=== PATIENT | female | born 1980 | race Caucasian/White ===

== ENCOUNTER → 2025-04-09 | Outpatient (CLI) | payer OTHER, SELFPAY ==
--- NOTE | 2025-04-09 09:45 | MRI_ITS ---
PROCEDURE: SPINE LUMBAR (ROUTINE) 04/09/2025 REASON FOR EXAM: PAIN, RADICULOPATHY TECHNIQUE: SPINE LUMBAR (ROUTINE) COMPARISON: Lumbar spine radiographs 02/26/2025. FINDINGS: 5 [id number] lumbar-type vertebrae are preserved in height. No acute fracture or subluxation. Small osseous fragment at the anterosuperior corner of L5 is most likely a developmental limbus vertebra. No abnormal marrow signal. Straightening of the normal lumbar lordosis may be positional. Relatively well preserved disc height, with mild desiccation at L4-5 and L5-S1. No significant disc bulge, spinal canal or neural foraminal narrowing is present on either side. There is at most mild lateral recess stenosis at L4-5, slightly greater on the left secondary to minimal dorsal annular disc bulge. Conus is normal in signal and morphology, terminating at L1. Normal appearance of the cauda equina. Unremarkable paravertebral soft tissues. MRI/Spine Lumbar (Routine) IMPRESSION: Minimal spondylotic changes at L4-5 and L5-S1, with mild lateral recess stenosi s at L4-5. Otherwise the spinal canal and bilateral neural foramina are widely patent. Reading Location: [id number]
--- OUTSIDE RECORDS SUMMARY | 2025-04-09 10:13 | XMS RPT_ITS | CCD ---
Author Organization [facility] CliniSyms Care Team Providers Care Director [employer] Name Role Phone NIKA NIELSEN Unavailable AUGUSTINE ADLER MD Unavailable DERREKCORIN BURNS Unavailable Unavailable KEVIN RAMOS, OCSAR Luciano Unavailable Unavailable STEPHANIA RAMOS, Mar YU Unavailable AIMEE OCHOA MD Unavailable Zaki ADLER MD Unavailable STACY BREAUX MD Unavailable Sana Brand Unavailable Unavailable Lillie Sanchez Unavailable Unavailable Marissa Velásquez Unavailable Unavailable Lakshmi RN, Chasidy Unavailable Unavailable GABRIELA RAMOS, TIGRE Beck Unavailable [phone] NAYELY JEFFRIES-ZACH ALSTON Unavailable Unavailable Unavailable NIKA NIELSEN Unavailable Unav ailable PHYSICAL THERAPY, CONSULT Unavailable Mar Lopez Attending Unavailable Mar CAT Primary Care Unavailable Mar CAT Admitting Unavailable TIGRE OCHOA Consulting Unavailable PROVIDER, UNKNOWN Consulting Unavailable PROVIDER, UNKNOWN Consulting Unavailable PROVIDER, UNKNOWN Consulting Unavailable Town Doctor, Out of Primary Care Provider Unavai lable Town Doctor, Out of Referring Provider Unavailab Erin Beltre Attending Provider [phone] Florentino RAMSO, Dr. Stack Attending Provider [phone] Town Doctor, Out of Primary Care Unavailable Town Doctor, Out of Referring Unavailable Erin Shaw Attending Unavailable Town Doctor, Out of Primary Care Unavailable Sreekanth Good Attending Unavailable Town Doctor, Out of Primary Care Unavailable Town Doctor, Out of Referring Unavailable Erin Shaw Attending Unavailable Town Doctor, Out of Primary Care Unavailable Erin Shaw Attending Unavailable Erin Shaw Referring Unavailable [facility] Doctor, Out of Primary Care Unavailable Sreekanth Good Attending Unavailable Medications Current Medications Medication Drug Class(es) Dates Sig (Normalized) Sig (Original) cetirizine hydrochloride 10 mg oral capsule (17 sources) Histamine-1 Receptor Antagonist Start: 02-26-2025 take 1 capsule by mouth once daily as needed Cetirizine (Zyrtec) 10 mg capsule Active 10 mg PO daily as needed February 26, 2025 12:00am take 1 capsule by mouth once kaushik ly ZYRTEC ALLERGY, 10MG (Oral Capsule) ; 1 daily (10 MG) ibuprofen 200 mg oral tablet (2 sources) Nonsteroidal Anti-inflammatory Drug Start: 03-31-2025 take 1 tablet by mouth every six hours as needed Ibuprofen 200 mg tablet Active 200 mg PO EVERY 6 HOURS as needed March 31, 2025 12:00am methocarbamol 500 mg oral tablet (3 sources) Muscle Relaxant Start: 02-26-2025 take 1 tablet by mouth three times daily as needed for pain Methocarbamol 500 mg tablet Active 500 mg PO THREE TIMES A DAY as needed for pain/spasms 30 0 February 26, 2025 12:00am naproxen 500 mg oral tablet (9 sources) Nonsteroidal Anti-inflammatory Drug Start: 03-31-2025 Naproxen 500 mg tablet Active 500 mg PO 1 to 2 times per day as needed for pain March 31, 2025 12:00am Start: 12-31-2024 naproxen 500 m g tablet ; 1 (one) tablet up to bid prn pain for 30 days Quantity: 60 {Tablet} Refills: 2 Ordered: 31-Dec-2024 MD Mar CAT Start: 31-Dec-2024 Comments: Take with food Comment on above: Take with food Completed/Discontinued Medications Medication Drug Class(es) Dates Sig (Normalized) Sig (Original) azithromycin 250 mg oral tablet (13 sources) Macrolide Antimicrobial Start: 11-05-2011 End: 11-10-2011 AZITHROMYCIN, 250MG (Oral Tablet) ; 2 x 1 then 1 x 4 Tablet daily for 5 days Quantity: 6 {Tablet} Refills: 0 Ordered: 20-Aug-2012 MD STACY BREAUX Start: 05-Nov-2011 End: 10-Nov-2011 Status: Inactive Comments: take two tablets day one and then one tablet daily for 4 days Comment on above: take two tablets day one and then one tablet daily for 4 days 12 hr guaiFENesin 600 mg extended release oral tablet (13 sources) Start: 07-08-2014 End: 07-17-2014 MUCINEX, 600MG (Oral Tablet Extended Release 12 Hour) ; 1 (one) Tablet ER 12HR daily to bid for 9 days Quantity: 18 {Tablet} Refills: 0 Ordered: 24-Sep-2014 MD Mar CAT Start: 08-Jul-2014 End: 17-Jul-2014 Status: Inactive hydrOXYzine hydrochloride 25 mg oral tablet (13 sources) Antihistamine take 1 tablet by mouth three times daily as needed HYDROXYZINE HCL, 25MG (Oral Tablet) ; 1 three times daily, as needed (25 MG) Status: Inactive Comments: Medication taken as needed. Comment on above: Medication taken as needed. oseltamivir 75 mg oral capsule (13 sources) Neuraminidase Inhibitor Start: 09-24-2014 End: 09-09-2017 Tamiflu 75 MG Oral Capsule ; 1 (one) Capsule two times daily for 5 days for 0 days Quantity: 10 {Capsule} Refills: 0 Ordered: 09-Sep-2017 TEQUILA Martins Start: 24-Sep-2014 End: 09-Sep-2017 Status: Inactive Forte Oral Tablet (13 sources) take 1 tablet by mouth once daily Forte Oral Tablet ; 1 daily Status: Inactive VITAMINS, 0.8MG (Oral Tablet) (13 sources) VITAMIN S, 0.8MG (Oral Tablet) ; (0.8 MG) Status: Inactive pseudoephedrine hydrochloride 60 mg oral tablet (13 sources) alpha-Adrenergic Agonist Start: 07-08-2014 End: 07-18-2014 take 0.5-0.5 tablets by mouth every eight hours as needed for congestion PSEUDOEPHEDRINE HCL, 60MG (Oral Tablet) ; 1/2 Tablet 1/2 to 1 every 8 hours prn sinus pressure and congestion for 10 days Quantity: 30 {Tablet} Refills: 0 Ordered: 24-Sep-2014 MD Mar CAT Start: 08-Jul-2014 End: 18-Jul-2014 Status: Inactive Problems Active Problems Problem Classification Problem Date Documented Da te Episodic/Chronic Abdominal hernia (20 sources) Umbilical hernia; Translations: [Umbilical hernia without obstruction or gangrene] 11-05-2011 Episodic Acute bronchitis (20 sources) Acute viral bronchitis; Translations: [Acute bronchitis due to other specified organisms] 05-11-2019 Episodic Immunizations and screening for infectious disease (20 sources) Needs influenza immunization; Translations: [Encounter for immunization] 09-09-2017 Episodic Influenza (20 sources) Influenza; Translations: [Influenza due to unidentified influenza virus with other respiratory manifestations] 09-24-2014 Episodic Nonspecific chest pain (20 sources) Chest wall pain; Translations: [Other chest pain] 11-26-2023 Episodic Other screening for suspected conditions (not mental disorders or infectious disease) (20 sources) Patient encounter status; Translations: [Encounter for screening for lipoid disorders] 09-09-2017 Episodic Other skin disorders (20 sources) Sebaceous cyst of skin; Translations: [Sebaceous cyst] 09-24-2014 Episodic Residual codes; unclassified (20 sources) Overweight; Translations: [Other specified conditions influencing health status] 10-20-2019 Episodic Spondylosis; intervertebral disc disorders; other back problems (20 sources) Neck pain; Translations: [Cervicalgia] Onset: 03-31-2025 11-30-2019 Episodic Thyroid disorders (20 sources) Goiter; Translations: [Nontoxic goiter, unspecified] 10-28-2019 Chronic Unclassified (1 source) Low back pain, unspecified; Translations: [Low back pain, unspecified] Onset: 02-26-2025 Viral infection (20 sources) Viral disease; Translations: [Viral infection, unspecified] 07-08-2014 Episodic Past or Other Problems Problem Classification Problem Date Documented Da te Episodic/Chronic Headache; including migraine (13 sources) Headache; including migraine 07-08-2014 Unclassified (13 sources) Chest pain - Note for Chest pain: Onset Wednesday 11/22 - Right chest electric burning sensation lasting 1 minute. Was cleaning barn - pigs/chickens. No SOB/dizziness. This has continued occasionally and is also noted left chest and apper back. Aggravated when lifts son. Feels well otherwise. 11-26-2023 Unclassified (13 sources) anterior neck fullness - Pt states 2-3 week h/o feeling of fullness in anterior neck. Describes feeling of fullness, aggravated by singing. Denies ST or heartburn, no recent illness. 10-20-2019 Unclassified (13 sources) Cough - Note for Cough: Chest and head congestion. Pt is 27 weeks . 05-11-2019 Unclassified (13 sources) Physical examination - Note for Physical examination: Form to fill out for 's work for insurance. 09-09-2017 Unclassified (13 sources) Immunization - Adacel was given. An immunization information sheet was provided. 10-16-2013 Unclassified (11 sources) cough - The onset of the cough has been acute and has been occurring in a persistent pattern for 3 days. The course has been increasing. The cough is characterized as productive of mucoid sputum. The amount of sputum produced is scanty. The symptoms have been associated with hoarseness, runny nose (and head congestion.) and sore throat, while the symptoms have not been associated with anorexia, chest pain, dyspnea or fever. 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 11-05-2011 Unclassified (11 sources) [ADDITIONAL REASON] Hernia, Umbilical - Symptoms include bulge at the umbilicus and bulge in the paraumbilical area. 11-05-2011 Unclassified (13 sources) Suture removal - The sutures were placed here. The date the sutures were placed was 10/11/10. The suture location is mid back. Note for Suture removal: healing well 10-23-2010 Unclassified (13 sources) Excision - The lesion is located on the the trunk (middle back). 10-11-2010 Unclassified (2 sources) Hernia, Umbilical - Symptoms include bulge at the umbilicus and bulge in the paraumbilical area. 11-05-2011 Unclassified (2 sources) [ADDITIONAL REASON] cough - The onset of the cough has been acute and has been occurring in a persistent pattern for 3 days. The course has been increasing. The cough is characterized as productive of mucoid sputum. The amount of sputum produced is scanty. The symptoms have been associated with hoarseness, runny nose (and head congestion.) and sore throat, while the symptoms have not been associated with anorexia, chest pain, dyspnea or fever. 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 11-05-2011 Unclassified (10 sources) !Patient notification of lab results - Zach Adler [facility]. The test(s) that you had done were/was an EKG. Note for !Patient notification of lab results : Your EKG showed a normal sinus rhythm, with no abnormalities, making it likely that the pain is coming from muscles and/or nerves. Continue your anti-inflammatory medication, and Let us know if you have any questions. 11-28-2023 Unclassified (7 sources) Back Pain Lumbar, Acute - This condition occurred without any known injury. The injury involved the low back. Symptoms include pain, while symptoms do not include muscle spasm, paresthesias or numbness. Note for Acute lumbar back pain: Pt states last few months will wake up consistently at 4 or 5 am with strong back pain, upper lumbar area. Non-radiating.No numbness or tingling Pain goes away in the morning once up and has no pain all day. Pain has not gotten worse, stays the same. Has tried a pillow between legs with little effect. 12-31-2024 Unclassified (5 sources) !Patient notification of lab results - Dr. Cat. The test(s) that you had done were/was blood work. The results of your testing were normal . You should call our office if you have any questions. 01-06-2025 Unclassified (1 source) !Patient notification of lab results - Dr. Cat. The test(s) that you had done were/was an xray of the spine. This showed some disc height loss of the low and mid spine (This is due to aging. There was also constipation.). You should call our office if you have any questions. Please continue your current medication/therapy and let us know if your symptoms do not improve. 01-11-2025 Results Test Name Value Interpretation Reference Range Facil ity Orthopedic Visit Reporton Orthopedic Visit Report [facility] [address] [place] [address] [place] [address] OFFICE VISIT Date of Service: 03/31/25 MR#: [id number] Acct: [id number] Name: NAUN ROSE Rep #: [id number] : 1980 Provider: RAMIREZ Kwan Age/Sex: 45/F Location: [facility] Status: Signed Intake Vital Signs 02/26/25 13:36 Height 5 ft 6 in Weight: 158 lb 8 oz BMI 25.5 Intake Visit Reasons: THORACIC SPINE Chief Complaint: Thoracic Spine Pain Accompanied by: Self Is patient in pain?: Yes Pain scale (1-10): 3 Allergies No Known Allergies Allergy (Unverified 03/31/25 13:43) Medications ???Medication ???Instructions ???Recorded ???Confirmed ???Type cetirizine 10 mg capsule (Zyrtec) 10 mg PO QDAY PRN 02/26/25 History methocarbamol 500 mg tablet 500 mg PO TID PRN pain/spasms #30 02/26/25 03/31/25 Rx tabs ibuprofen 200 mg tablet 200 mg PO Q6H PRN 03/31/25 5 History naproxen 500 mg tablet 500 mg PO QD-BID PRN pain 03/31/25 03/31/25 History PFSH Medical History Hernia Gallbladder abscess Hypoglycemia Family History Mother No problems noted. Father No problems noted. Social History Smoking Status: Never smoker alcohol intake: former HPI THORACIC SPINE Details: This documentation accurately reflects the service provided and the decisions made by me, RAMIREZ Kwan 03/31/25 2927. Part of today???s visit was documented by Aubrie Manuel ATC, acting as scribe. NAUN ROSE is a 45 year old F here today for thoracic spine pain. Patient states she recently went on an RV trip for 2 weeks and sat for prolonged period of times. Patient was scheduled for a lumbar spine MRI but the pain is traveling up the mid back and wants to get the whole area. She states the pain in her mid back started after her last visit. She states the pain seems to be worse on the right side in one specific spot. She states it can move up into her shoulders but states it could be from stiffness. She states the pain will travel down into the buttocks as well. She states she had naproxen and does take Ibuprofen as well and she notices it taking the edge off of the pain. She also had the prescription for the muscle relaxer and she noticed a little relief from the muscle relaxer. She states the pain is worse when she is sitting for prolonged periods of time. When she is up and moving or laying flat she barely notices the pain. Her pain is also worse in the mornings. 02/26/2025: Patient is having pain in the lower back. The pain was severe at first, but it has decreased to a mild pain. The pain feels like a throbbing pain and and achy pain. The pain is in the middle of the lower back, and goes down into both glutes. This has been going on since October. Patient states that the pain woke her up. She went to the doctor in December. Patient went to [facility] and they did xrays. Her family doctor stated that the xrays showed a decreased height. Patient denies any recent or past surgeries on her lower back. The pain hurts worse at night. Laying in bed too long makes the pain worse. Patient has been doing physical therapy at [facility] in [place]. She has been doing it for 4 weeks. She went once a week and then they discharged her to complete the home exercise program which she has been doing on her own twice a day. Patient states that the therapy did help a little bit, but she knows it's still there. Patient denies any diabetes, or blood thinners. Patient denies any smoking, or drug use. Patient denies any numbness or tingling in the feet or toes. She states that her balance is good. Pain is worse in the morning, once she gets up and gets moving she has an improvement in her pain and she is able to do what she wishes to do. Patient has taken over the counter ibuprofen and Tylenol without any improvement. No diabetes, no heart or lung issues, no blood thinners. Belly button scar after hernia repair Ortho Exam General General: Yes no acute distress Neurologic: Yes alert and Yes oriented x3 Spine SPINE TESTING CERVICAL THORACIC LUMBAR Musculoskeletal Strength 0=absent - 5=normal Details: Neurological exam of the lower extremities shows 5x5 power. Normal sensations across all dermatomes. No hyperreflexia. No midline or paraspinal tenderness. There is no thoracic midline or paraspinal tenderness. Figure 4 and Bay's negative. Coding Level of Care Code Off vis,est,level 2 Diagnoses Lumbar radiculopathy M54.16 Acute bilateral thoracic back pain M54.6 Chronicity: acute Back pain laterality: bilateral Assessment and Plan Assessment and Plan (1) Lumbar radiculopathy: Status: (more content not included)... Normal [facility] Thoracic Spine 2 Viewson Thoracic Spine 2 Views [facility] [address] [place], [place] [address] Thoracic Spine 2 Views MR#: [id number] Acct: [id number] Name: NAUN ROSE Rep #: [id number] : 1980 F 45 From: Quirino Jose MD PCP: OUT OF TOWN DOCTOR Status: DEP AMB Study: Thoracic Spine 2 Views Date of Exam: 03/31/25 Exam# [id number] Ordering Dr: Erin Shaw EXAM: XR Thoracic Spine, 2 Views CLINICAL INDICATION: UPPER BACK PAIN, NKI TECHNIQUE: Frontal and lateral views of the thoracic spine. COMPARISON: No relevant prior studies available. FINDINGS: VERTEBRAE: Unremarkable. No acute fracture. Normal alignment. DISC SPACES: No acute findings. No significant narrowing. SOFT TISSUES: Unremarkable. RAD/Thoracic Spine 2 Views IMPRESSION: No acute fracture. Reading Location: [facility] CC: RAMIREZ Kwan Rayon Winder: Signed Normal [facility] L/S Spine Bending Flex/Kent 02-26-2025 L/S Spine Bending Flex/Ext [facility] [address] [place], [place] [address] L/S Spine Bending Flex/Ext MR#: [id number] Acct: [id number] Name: NAUN ROSE Rep #: [id number] : 1980 F 45 From: Quirino Jose MD PCP: OUT OF TOWN DOCTOR Status: DEP AMB Study: L/S Spine Bending Flex/Ext Date of Exam: 02/26 Exam# [id number] Ordering Dr: Erin Shaw EXAM: XR Lumbosacral Spine Flexion/Extension Only, 2 or 3 Views CLINICAL INDICATION: CHRONIC PAIN TECHNIQUE: Lateral flexion/extension views of the lumbar spine and sacrum. COMPARISON: No relevant prior studies available. FINDINGS: VERTEBRAE: Bony fragment of the anterior superior endplate of L5, likely remote. Normal sagittal alignment. No acute fracture or significant dynamic instability. SACRUM/COCCYX: Unremarkable as visualized. No acute fracture. DISC SPACES: No acute findings. No significant narrowing. SOFT TISSUES: Unremarkable. RAD/L/S Spine Bending Flex/Ext IMPRESSION: 1. No acute fracture or significant dynamic instability. 2. Bony fragment of the anterior superior endplate of L5, likely remote. Reading Location: [id number] CC: RAMIREZ Kwan Rayon Winder: Signed Normal [facility] Orthopedic Visit Reporton Orthopedic Visit Report [facility] [address] [place] [address] OFFICE VISIT Date of Service: 02/26/25 MR#: [id number] Acct: [id number] Name: NAUN ROSE Rep #: [id number] : 1980 Provider: RAMIREZ Kwan Age/Sex: 45/F Location: [facility] Status: Signed Intake Vital Signs 02/26/25 13:36 Height 5 ft 6 in Weight: 158 lb 8 oz BMI 25.5 Intake Visit Reasons: LUMBAR SPINE Chief Complaint: Lumbar spine pain Accompanied by: Self Is patient in pain?: No Allergies No Known Allergies Allergy (Unverified 02/26/25 13:36) Medications ???Medication ???Instructions ???Recorded ???Confirmed ???Type cetirizine 10 mg capsule (Zyrtec) 10 mg PO QDAY PRN 02/26/25 History methocarbamol 500 mg tablet 500 mg PO TID PRN pain/spasms #30 02/26/25 02/26/25 Rx tabs Have you fallen in the past year?: No PFSH Medical History Hernia Gallbladder abscess Hypoglycemia Family History Mother No problems noted. Father No problems noted. Social History (Reviewed 02/26/25 @ 13:38 by FAWN Ling Smoking Status: Never smoker alcohol intake: former HPI LUMBAR SPINE Details: This documentation accurately reflects the service provided and the decisions made by me, RAMIREZ Kwan 02/26/25 5710. Part of today???s visit was documented by Chidi Mendoza MA, acting as scribe. NAUN ROSE is a 45 year old F here today for lumbar spine pain. Patient is having pain in the lower back. The pain was severe at first, but it has decreased to a mild pain. The pain feels like a throbbing pain and and achy pain. The pain is in the middle of the lower back, and goes down into both glutes. This has been going on since October. Patient states that the pain woke her up. She went to the doctor in December. Patient went to [facility] and they did xrays. Her family doctor stated that the xrays showed a decreased height. Patient denies any recent or past surgeries on her lower back. The pain hurts worse at night. Laying in bed too long makes the pain worse. Patient has been doing physical therapy at [facility] in [place]. She has been doing it for 4 weeks. She went once a week and then they discharged her to complete the home exercise program which she has been doing on her own twice a day. Patient states that the therapy did help a little bit, but she knows it's still there. Patient denies any diabetes, or blood thinners. Patient denies any smoking, or drug use. Patient denies any numbness or tingling in the feet or toes. She states that her balance is good. Pain is worse in the morning, once she gets up and gets moving she has an improvement in her pain and she is able to do what she wishes to do. Patient has taken over the counter ibuprofen and Tylenol without any improvement. No diabetes, no heart or lung issues, no blood thinners. Belly button scar after hernia repair Ortho Exam General General: Yes no acute distress Neurologic: Yes alert and Yes oriented x3 Spine SPINE TESTING CERVICAL THORACIC LUMBAR Musculoskeletal Strength 0=absent - 5=normal Details: Neurological exam of the lower extremities shows 5x5 power. Normal sensations across all dermatomes. No hyperreflexia. No midline or paraspinal tenderness. Coding Level of Care Code Off vis,new,level 3 Diagnoses Lumbar radiculopathy M54.16 Assessment and Plan Assessment and Plan (1) Lumbar radiculopathy: Status: Acute Orders: Orders L/S Spine Bending Flex/Ext 02/26/25 M54.50 - Low back pain, unspecified Spine Lumbar (Routine) 02/26/25 M54.16 - Radiculopathy, lumbar region Medications: New methocarbamol 500 mg PO TID PRN 30 tabs 0RF pain/spasms Plan Obtained and reviewed prior AP and LAT xrays and obtained flexion/extension xrays. Imaging shows a mild disc height loss at L5-S1 with L5 having a limbus body. No instability on dynamic views. No MRI. Explained the xray findings in detail. The patient has been having low back pain since December. This pain is present in the morning and tends to get better throughout day while she is moving more. This pain the morning has been waking her up at night and has made it difficult for her to get comfortable and fall back asleep. Because of this lack of sleep it has been affecting her quality of life although the patient says that she is still able to complete the activities that she wishes to. She has tried PT and completed 4 weeks goes once per week and then was given a HEP which has been completing 1-2 times per day over the last several weeks with no improvement. She has taken medication over the counter with NSAIDs and Tylenol with no (more content not included)... Normal [facility] DORSAL SPINE 2 VIEWSon 01-06 DORSAL SPINE 2 VIEWS [place] [address] Patient: NAUN ROSE Phone#: : 1980 Age: 44 Gender: F Pt. Type: Out Account: [id number] Location: Ordering: AIMEE CAT Exam Date: 01/06/2025/16:14 Family Phys: TIGRE BOYD Charge Code: [id number] Physician: Parker Order #: [id number] Dose#: PROCEDURE: X-RAY DORSAL SPINE 2 VIEWS COMPARISON: None. INDICATIONS: Low back pain, non-specific FINDINGS: BONES: Vertebral bodies are maintained in height and alignment. Anterior osteophytes are seen at several levels. DISC SPACES: Mild disc height loss at T6 and T7-8. PARASPINOUS: Negative. No paraspinous abnormality is seen. OTHER: Negative. CONCLUSION: 1. Mild disc height loss in the midthoracic spine. Dictated by: Fiorella Sibley MD on 01/06/2025 at 17:12 Approved by: Fiorella Sibley MD on 01/06/2025 at 17:16 Normal [facility] LUMBO SACRAL COMPLETE MIN 4 VIEWSon 01-06-2025 LUMBO SACRAL COMPLETE MIN 4 VIEWS [place] [address] Patient: NAUN ROSE Phone#: : 1980 Age: 44 Gender: F Pt. Type: Out Account: [id number] Location: Ordering: AIMEE CAT Exam Date: 01/06/2025/15:48 Family Phys: TIGRE OCHOA Charge Code: [id number] Physician: Parker Order #: [id number] Dose#: PROCEDURE: X-RAY LUMBAR SPINE COMPLETE MIN 4 VIEWS COMPARISON: None. INDICATIONS: Hx low back pain, non-specific FINDINGS: BONES: L5 limbus vertebral body. Remaining vertebral bodies are maintained in height and alignment. Mild osseous foraminal narrowing at L5-S1. DISC SPACES: Mild disc height loss at L5-S1. PARASPINOUS: Negative. No paraspinous abnormality is seen. OTHER: Stomach is air-filled. Moderate to large stool burden throughout the colon. CONCLUSION: 1. Mild disc height loss at L5-S1 with associated mild osseous foraminal narrowing. 2. Constipation Dictated by: Fiorella Sibley MD on 01/06/2025 at 16:51 Approved by: Fiorella Sibley MD on 01/06/2025 at 16:55 Normal [facility] Laboratory - Chemistry and C hemistry - challengeon 12-31-2024 Albumin [Mass/Vol] 4.3 g/dL Normal 3.9 - 4.9 g/dL [facility] ALP [Catalytic activity/Vol] 58 U/L Normal 44 - 121 [iU]/L [facility] ALT [Catalytic activity/Vol] 11 U/L Normal 0 - 32 [iU]/L [facility], [facility] AST [Catalytic activity/Vol] 13 U/L Normal 0 - 40 [iU]/L [facility] Bilirubin [Mass/Vol] 0.4 mg/dL Normal 0.0 - 1.2 mg/dL [facility] Calcium [Mass/Vol] 9.3 mg/dL Normal 8.7 - 10. 2 mg/dL [facility]); [facility], [facility] Chloride [Moles/Vol] 104 mmol/L Normal 96 - 106 mmol/L [facility], [facility] CO2 [Moles/Vol] 24 mmol/L Normal 20 - 29 mmol/L [facility] Creatinine [Mass/Vol] 0.81 mg/dL Normal 0.57 - 1.00 mg/dL [facility]); [facility], [facility] GFR/1.73 sq M.predicted among non-blacks MDRD (S/P/Bld) [Vol rate/Area] 93 mL/min/{1.73_m2} Normal [facility] Globulin (S) [Mass/Vol] 2.8 g/dL Normal 1.5 - 4.5 g/dL [facility]); [facility], [facility] Glucose [Mass/Vol] 77 mg/dL Normal 70 - 99 mg/dL [facility]; [facility], [facility] Potassium [Moles/Vol] 4.7 mmol/L Normal 3.5 - 5.2 mmol/L [facility] Protein [Mass/Vol] 7.1 g/dL Normal 6.0 - 8.5 g/dL [facility]); [facility], [facility] Sodium [Moles/Vol] 140 mmol/L Normal 134 - 144 mmol/L [facility] Urea nitrogen [Mass/Vol] 13 mg/dL Normal 6 - 24 mg/dL [facility] Urea nitrogen/Creatinine [Mass ratio] 16 mg/mg Normal 9 - 23 [facility] Laboratory - Hematology and Cell countson 12-31-2024 Basophils (Bld) [#/Vol] 0.0 10*3/uL Normal 0.0 - 0.2 {x10E3/uL} [facility] Basophils/100 WBC (Bld) 1 % Normal [facility] Eosinophils (Bld) [#/Vol] 0.1 10*3/uL Normal 0.0 - 0.4 {x10E3/uL} [facility] Eosinophils/100 WBC (Bld) 2 % Normal [facility] Erythrocyte distribution width (RBC) [Ratio] 11.7 % Normal 11.7 - 15.4 % [facility] ESR (Bld) [Velocity] 4 mm/h Normal 0 - 32 mm/h [facility]); [facility], [facility] Hematocrit (Bld) [Volume fraction] 43.2 % Normal 34.0 - 46.6 % [facility], [facility] Hemoglobin (Bld) [Mass/Vol] 13.7 g/dL Normal 11.1 - 15.9 g/dL [facility], [facility] Immature granulocytes (Bld) [#/Vol] 0.0 10*3/uL Normal 0.0 - 0.1 {x10E3/uL} [facility].; [facility] Immature granulocytes/100 WBC (Bld) 0 % Normal [facility].; [facility], [facility] Lymphocytes (Bld) [#/Vol] 2.2 10*3/uL Normal 0.7 - 3.1 {x10E3/uL} [facility].; [facility], [facility] Lymphocytes/100 WBC (Bld) 38 % Normal [facility].; [facility], [facility]. MCH (RBC) [Entitic mass] 28.0 pg Normal 26.6 - 33.0 pg [facility].; [facility], [facility]. MCHC (RBC) [Mass/Vol] 31.7 g/dL Normal 31.5 - 35.7 g/dL [facility].; [facility], [facility]. MCV (RBC) [Entitic vol] 88 fL Normal 79 - 97 fL [facility].; [facility], [facility]. Monocytes (Bld) [#/Vol] 0.4 10*3/uL Normal 0.1 - 0.9 {x10E3/uL} [facility].; [facility], [facility]. Monocytes/100 WBC (Bld) 8 % Normal [facility].; [facility], [facility] Neutrophils (Bld) [#/Vol] 3.0 10*3/uL Normal 1.4 - 7.0 {x10E3/uL} [facility] DIVISION[facility] [employer] [facility] [employer] [facility], [employer]. Neutrophils/100 WBC (Bld) 51 % Normal [facility] [employer] [facility].; [facility] [employer] [facility], [facility] Platelets (Bld) [#/Vol] 209 10*3/uL Normal 150 - 450 {x10E3/uL} [facility] [employer] [facility] [employer] [facility], [facility] RBC (Bld) [#/Vol] 4.89 10*6/uL Normal 3.77 - 5.2 8 {x10E6/uL} [facility] [employer] [facility] [place] [employer] [facility] WBC (Bld) [#/Vol] 5.8 10*3/uL Normal 3.4 - 10.8 {x10E3/uL} [facility] [employer] [facility], [employer].; [facility] [employer] [facility], [employer]. PHYSICAL THERAPY REPORTon PHYSICAL THERAPY REPORT [facility] [place] [address] PHYSICAL THERAPY REPORT Patient: ROSENAUN TIGRE OCHOA M.D. [id number] F Status: DIS RCR PT Outpatient Physical Therapy Discharge Summary DATE OF VISIT: PHYSICIAN: Tigre Ochoa MD Dear Tigre Ochoa, As you know, you referred your patient to the [facility] secondary to vertigo. She completed 2 therapy sessions. She was last seen on 06/07/2020. She was instructed to contact me should she have any further need for skilled physical therapy intervention. She has not done so, and at this time, we will discharge her chart. Thank you again for the referral of your patient. If you have any further questions, please do not hesitate to contact me here at the [facility]. Report#: Dict ID [id number] / Int ID [id number] cc: Tigre Ochoa MD Dictated By: HANNY PLEITEZ DPT 07/08/20 1337 __ HANNY PLEITEZ DPT CC: TIGRE OCHOA M.D. << Signature on File>> Reported By: HANNY PLEITEZ DPT Signed By: HANNY PLEITEZ DPT Tests performed at: [address] [address] Normal [facility] PHYSICAL THERAPY REPORTon PHYSICAL THERAPY REPORT [address] [address] PHYSICAL THERAPY REPORT Patient: NAUN ROSE TIGRE OCHOA M.D. [id number] F Status: REG RCR PT Outpatient Physical Therapy Initial Evaluation DATE OF VISIT: 05/27/2020 THERAPIST: Hanny Pleitez DPT. PHYSICIAN: Tigre Ochoa MD. PHYSICAL THERAPY DIAGNOSIS: Benign paroxysmal positional vertigo, right. MEDICAL DIAGNOSIS: Benign paroxysmal positional vertigo, right. CHIEF COMPLAINT: 1. Vertigo. 2. Nausea. 3. Unsteadiness. HISTORY: The patient reports that yesterday, she experienced a severe episode of vertigo when she was bending down playing with her son. She states that she had vertigo most of the rest of the day especially when she would turn onto her right side. The patient reports that her also was able to visualize nystagmus. The patient has no history of vertigo. She notes that she did go on a pontoon boat 2 weeks ago, but did not have any significant vertigo afterwards. She notes she did somewhat feel off from being on the boat. 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 Her attended the evaluation today. PERSONAL FACTORS AND COMORBIDITIES: None. EXAMINATION: Block fixation with the infrared video goggles was applied. The patient was taken through a right [place]-Hallpike test, which was unremarkable for any nystagmus or vertigo. The patient was then taken through a left [place]-Hallpike test, which was unremarkable as well. The patient was then taken through a sit to supine test, which was negative. A horizontal roll test was then performed and was positive for an ageotropic horizontal nystagmus with concordant vertigo. The patient was then taken through a barbecue roll maneuver for a right horizontal canal canalithiasis. The patient was returned to sitting and educated on BPPV. A second horizontal roll test to the right elicited similar nystagmus, but not as intense vertigo. The patient was again taken through a barbecue roll. The patient was again returned to sitting and educated on BPPV and scheduled to follow up with me next week. CLINICAL PRESENTATION: The patient displays a stable clinical presentation with uncomplicated characteristics. CLINICAL DECISION MAKING: Low complexity based upon the above history and examination. PROBLEM LIST: 1. Right horizontal canal canalithiasis. 2. Dependence with home exercise program. GOALS: 1. The patient will report abolishment of all vertigo in 6 visits. 2. The patient will be independent and compliant with home exercise program if necessary in 6 visits. PATIENT-STATED GOALS: To get rid of vertigo. PROGNOSIS: Good to achieve therapy goals. TREATMENT PLAN: Canalith repositioning maneuvers, patient education, home exercise program instruction. FREQUENCY AND DURATION: 1-2 times per week for 6 visits. DISCHARGE PLAN: The patient will be discharged upon completion of physical therapy goals or plateau on her physical therapy progress. Thank you again for the referral of your patient. If you have any further questions, please do not hesitate to contact me here at the [facility]. Report#: Dict ID [id number] / Int ID [id number] cc: Tigre Ochoa MD Dictated By: HANNY PLEITEZ DPT 05/27/20 1418 __ HANNY PLEITEZ DPT CC: TIGRE OCHOA M.D. << Signature on File>> Reported By: HANNY PLEITEZ DPT Signed By: HANNY PLEITEZ DPT Tests performed at: [address] [address] Normal [facility] TSHon 10-21-2019 TSH Qn 1.410 mcIU/mL Normal 0.360-3.740 [facility] ([place]) Comment on above: Performed By: #### T SH #### [place] [address] Laboratory - Chemistry and C hemistry - challengeon 10-20-2019 TSH Qn 1.410 m[IU]/L Normal 0.360 - 3.740 {mcIU/mL} [facility].; [facility] [employer] [facility] First. US AXILLA BREAST LEFTon 08-23 US AXILLA BREAST LEFT ORIGINAL FROM: [place] [address] PROCEDURE FOR: NAUN ROSE [address] [place] [address] Home: PID#: [id number] Exam#: [id number] : 1980 Age: 39 TO: HEATHER [place] [address] #[id number] ULTRASOUND OF LEFT AXILLA: 09/01/2019 CLINICAL: LT AXILLA LUMP. No prior exams were available for comparison. Color flow and real-time ultrasound of the left axilla were performed. There are no sonographic abnormalities. A normal appearing lymph node is identified. A area of normal fibroglandular tissue is seen, likely corresponding to the palpable abnormality. IMPRESSION: BENIGN Normal US exam. Clinical follow up recommended. There is no sonographic evidence of malignancy. WOODY BETANCOURT MD ab/kendell:09/01/2019 15:53:34 Horse Riding Coach Or Instructor(s): RT ASHWIN(R)(M), [facility], [facility] letter sent: Normal BI-RADS 1&2 Ultrasound BI-RADS: 2 Benign Normal [facility] ([place]) Laboratory - Blood bankon ABO and Rh group Nom (Bld) Blood group A Rh(D) negative Normal [facility] [employer]; [facility] [employer] Work Phone: No Panel Informationon 05-19 RETYPE INTERP Negative Normal [facility].; [facility]. Work Phone: RHIG CANDIDACY RhIG Candidate Normal [facility]. Work Phone: RHIG LOT # pharmacy report sent Normal [facility]. Work Phone: Laboratory - Chemistry and C hemistry - challengeon 09-09-2017 Calcium [Mass/Vol] 8.8 mg/dL Normal 8.4 - 10. 1 mg/dL [facility].; [facility], [employer]. Chloride [Moles/Vol] 104 mmol/L Normal 98 - 110 meq/L [facility], [employer]. Cholesterol [Mass/Vol] 173 mg/dL Normal 50 - 199 mg/dL [facility], [employer]. Cholesterol in HDL [Mass/Vol] 55 mg/dL Normal 40 - 59 mg/dL [facility], [employer]. Cholesterol in LDL [Mass/Vol] 100 mg/dL Normal 0 - 129 mg/dL [facility].; [facility], [employer]. CO2 [Moles/Vol] 28 mmol/L Normal 22 - 32 meq/L [facility].; [facility], [employer]. Creatinine [Mass/Vol] 0.76 mg/dL Normal 0.50 - 1.20 mg/dL [facility].; [facility] GFR/1.73 sq M.predicted among blacks MDRD (S/P/Bld) [Vol rate/Area] mL/min/{1.73_m2} Normal [facility].; [facility]. Work Phone: GFR/1.73 sq M.predicted among non-blacks MDRD (S/P/Bld) [Vol rate/Area] mL/min/{1.73_m2} Normal [facility] Work Phone: Glucose [Mass/Vol] 92 mg/dL Normal 70 - 110 mg/dL [facility] Potassium [Moles/Vol] 4.1 mmol/L Normal 3.5 - 5.0 meq/L [facility]); [facility], [facility] Sodium [Moles/Vol] 140 mmol/L Normal 136 - 145 meq/L [facility]; [facility], [facility] Triglyceride [Mass/Vol] 90 mg/dL Normal 3 - 149 mg/dL [facility]); [facility], [facility] Urea nitrogen [Mass/Vol] 16.0 mg/dL Normal 8.0 - 22.0 mg/dL [facility]); [facility], [facility] Urea nitrogen/Creatinine [Mass ratio] 21.1 {ratio} Normal 10.0 - 22.0 {ratio} [facility]); [facility], [facility] No Panel Informationon 09-09 Electrolyte Balance 8.0 meq/L Normal 4.0 - 15 .0 meq/L [facility] Laboratory - Blood bankon cell screen Maddi test Ql (Bld) Negative Normal [facility]); [facility] Work Phone: Laboratory - Hematology and Cell countson 10-19-2015 Basophils/100 WBC (Bld) 0.2 % Normal 0.0 - 2.5 % [facility]); [facility] Work Phone: Eosinophils/100 WBC (Bld) 0.4 % Normal 0.0 - 6.0 % [facility]); [facility] Work Phone: Erythrocyte distribution width (RBC) [Ratio] 12.4 % Normal 11.5 - 15.5 % [facility] Work Phone: Hematocrit (Bld) [Volume fraction] 34.7 % Normal 34.0 - 46.0 % [facility] Work Phone: Hematocrit (Bld) [Volume fraction] 34.2 % Normal 34.0 - 46.0 % [facility]); [facility] Work Phone: Hemoglobin (Bld) [Mass/Vol] 11.6 g/dL Abnormal 12.0 - 16.0 g/dL [facility]); [facility]. Work Phone: Hemoglobin (Bld) [Mass/Vol] 11.3 g/dL Abnormal 12.0 - 16.0 g/dL [facility]); [facility] Work Phone: Lymphocytes/100 WBC (Bld) 12.3 % Abnormal 20.0 - 40.0 % [facility]); [facility]. Work Phone: MCH (RBC) [Entitic mass] 28.9 pg Normal 27.0 - 33.0 pg [facility] Work Phone: MCHC (RBC) [Mass/Vol] 33.0 g/dL Normal 32.0 - 36.0 g/dL [facility] Work Phone: MCV (RBC) [Entitic vol] 87.5 fL Normal 80.0 - 99.0 fL [facility] [employer]; [facility]. Work Phone: Monocytes/100 WBC (Bld) 6.3 % Normal 2.0 - 13.0 % [facility]. Work Phone: Neutrophils (Bld) [#/Vol] 10.70 {10_3/mcL} Abnormal 1.90 - 7.90 {10_3/mcL} [facility]. Work Phone: Neutrophils/100 WBC (Bld) 80.8 % Abnormal 50.0 - 75.0 % [facility] [employer]; [facility]. Work Phone: Platelet mean volume (Bld) [Entitic vol] 8.0 fL Normal 6.6 - 10.5 fL [facility] [employer] [facility] [employer]; [facility]. Work Phone: Platelets (Bld) [#/Vol] 121 {10_3/mcL} Abnormal 150 - 450 {10_3/mcL} [facility] [employer] [facility] [employer]; [facility]. Work Phone: RBC (Bld) [#/Vol] 3.91 {10_6/mcL} Abnormal 4.10 - 5.30 {10_6/mcL} [facility] [employer] [facility].; [facility]. Work Phone: WBC (Bld) [#/Vol] 13.30 {10_3/mcL} Abnormal 4.50 - 10.80 {10_3/mcL} [facility] [employer] [facility].; [facility] [employer] [facility]. Work Phone: Laboratory - Blood bankon ABO and Rh group Nom (Bld) Blood group A Rh(D) negative Normal [facility] Work Phone: Blood group antibody screen Ql Negative Normal [facility] Work Phone: Laboratory - Hematology and Cell countson 10-18-2015 Basophils/100 WBC (Bld) 0.1 % Normal 0.0 - 2.5 % [facility] Work Phone: Eosinophils/100 WBC (Bld) 0.8 % Normal 0.0 - 6.0 % [facility] Work Phone: Erythrocyte distribution width (RBC) [Ratio] 12.8 % Normal 11.5 - 15.5 % [facility] Work Phone: Hematocrit (Bld) [Volume fraction] 41.4 % Normal 34.0 - 46.0 % [facility] Work Phone: Hemoglobin (Bld) [Mass/Vol] 13.6 g/dL Normal 12.0 - 16.0 g/dL [facility] Work Phone: Lymphocytes/100 WBC (Bld) 14.7 % Abnormal 20.0 - 40.0 % [facility] Work Phone: MCH (RBC) [Entitic mass] 29.3 pg Normal 27.0 - 33.0 pg [facility] Work Phone: MCHC (RBC) [Mass/Vol] 33.0 g/dL Normal 32.0 - 36.0 g/dL [facility]. Work Phone: MCV (RBC) [Entitic vol] 88.8 fL Normal 80.0 - 99.0 fL [facility]. Work Phone: Monocytes/100 WBC (Bld) 6.1 % Normal 2.0 - 13.0 % [facility]. Work Phone: Neutrophils (Bld) [#/Vol] 8.30 {10_3/mcL} Abnormal 1.90 - 7.90 {10_3/mcL} [facility]. Work Phone: Neutrophils/100 WBC (Bld) 78.3 % Abnormal 50.0 - 75.0 % [facility]); [facility]. Work Phone: Platelet mean volume (Bld) [Entitic vol] 7.8 fL Normal 6.6 - 10.5 fL [facility]. Work Phone: Platelets (Bld) [#/Vol] 116 {10_3/mcL} Abnormal 150 - 450 {10_3/mcL} [facility].; [facility]. Work Phone: RBC (Bld) [#/Vol] 4.66 {10_6/mcL} Normal 4.10 - 5.30 {10_6/mcL} [facility].; [facility]. Work Phone: WBC (Bld) [#/Vol] 10.60 {10_3/mcL} Normal 4.50 - 10.80 {10_3/mcL} [facility]; [facility] Work Phone: Laboratory - Hematology and Cell countson 11-21-2012 Hematocrit (Bld) [Volume fraction] 37.3 % Normal 34.0 - 46.0 % [facility] Work Phone: Hemoglobin (Bld) [Mass/Vol] 12.4 g/dL Normal 12.0 - 16.0 g/dL [facility] Work Phone: Laboratory - Blood bankon ABO and Rh group Nom (Bld) Blood group A Rh(D) negative Normal [facility] ([facility]); [facility] Work Phone: Blood group antibody screen Ql Negative Normal [facility]; [facility] Work Phone: Laboratory - Hematology and Cell countson 11-20-2012 Basophils/100 WBC (Bld) 0.0 % Normal 0.0 - 2.5 % [facility]); [facility] Work Phone: Eosinophils/100 WBC (Bld) 0.6 % Normal 0.0 - 6.0 % [facility].; [facility] Work Phone: Erythrocyte distribution width (RBC) [Ratio] 12.0 % Normal 11.5 - 15.5 % [facility]); [facility] Work Phone: Hematocrit (Bld) [Volume fraction] 41.8 % Normal 34.0 - 46.0 % [facility]; [facility] Work Phone: Hemoglobin (Bld) [Mass/Vol] 14.2 g/dL Normal 12.0 - 16.0 g/dL [facility]; [facility]. Work Phone: Lymphocytes/100 WBC (Bld) 20.4 % Normal 20.0 - 40.0 % [facility]; [facility] Work Phone: MCH (RBC) [Entitic mass] 30.0 pg Normal 27.0 - 33.0 pg [facility]; [facility]. Work Phone: MCHC (RBC) [Mass/Vol] 34.1 g/dL Normal 32.0 - 36.0 g/dL [facility]; [facility] Work Phone: MCV (RBC) [Entitic vol] 88.1 fL Normal 80.0 - 99.0 fL [facility]; [facility]. Work Phone: Monocytes/100 WBC (Bld) 7.1 % Normal 2.0 - 13.0 % [facility]; [facility]. Work Phone: Neutrophils (Bld) [#/Vol] 7.83 {10_3/mcL} Normal 1.90 - 7.90 {10_3/mcL} [facility].; [facility]. Work Phone: Neutrophils/100 WBC (Bld) 71.9 % Normal 50.0 - 75.0 % [facility]; [facility]. Work Phone: Platelet mean volume (Bld) [Entitic vol] 6.8 fL Normal 6.6 - 10.5 fL [facility]; [facility] Work Phone: Platelets (Bld) [#/Vol] 144 {10_3/mcL} Abnormal 150 - 450 {10_3/mcL} [facility] [employer] [facility] Work Phone: RBC (Bld) [#/Vol] 4.74 {10_6/mcL} Normal 4.10 - 5.30 {10_6/mcL} [facility] [employer] [facility] Work Phone: WBC (Bld) [#/Vol] 10.89 {10_3/mcL} Abnormal 4.50 - 10.80 {10_3/mcL} [facility] [employer] [facility] Work Phone: Vital Signs Date Time Vital Sign Value Performing Clinician Facility 02-26-2025 13:36-0400 Body height 167.64 cm [facility] 02-26-2025 13:36-0400 Body mass index (BMI) [Ratio] 25.5 kg/m2 [facility] 02-26-2025 13:36-0400 Body weight 71.89 kg [facility] 12-31-2024 09:16-0400 Body weight 73.03 kg NIKA BURROUGHS RABBIT DRESSER-C [facility] [employer] [facility], [employer].; [facility] [employer] [facility] 12-31-2024 09:16-0400 Diastolic blood pressure 65 mm[Hg] NIKA GARCÍAP-C [facility] [facility] Inc. Comment on above: Patient Position: Sitting; Cuff Location : Left Arm; Cuff Size: Standard 12-31-2024 09:16-0400 Heart rate 80 /min NIKA GARCÍAP-C [facility] [employer].; [facility] [employer] [facility] Comment on above: Pattern: Regular 12-31-2024 09:16-0400 Systolic blood pressure 99 mm[Hg] NIKA MILLERTESYDNEE RABBIT DRESSER-C [facility] [facility] Inc. Comment on above: Patient Position: Sitting; Cuff Location : Left Arm; Cuff Size: Standard 11-26-2023 11:12-0500 Body height 167.64 cm NIKA MILLERTETTER RABBIT DRESSER-C Work Phone: [facility].; [employer] [facility] First. 11-26-2023 11:12-0500 Body mass index (BMI) [Ratio] 23.73 kg/m2 NIKA CERVANTESFSTETTER RABBIT DRESSER-C Work Phone: [facility] [facility].; [employer] [facility] [facility] First. 11-26-2023 11:12-0500 Body surface area Derived from formula 1.75 m2 NIKA MILLERTETTER RABBIT DRESSER-C Work Phone: [facility] [employer] [facility].; [employer] [facility] [employer] [facility] First. 11-26-2023 11:12-050 Body weight 66.68 kg NIKA MILLERTETTER RABBIT DRESSER-C Work Phone: [facility] [employer] [facility].; [employer] [facility] [facility] First. 11-26-2023 11:12-0500 Diastolic blood pressure 68 mm[Hg] NIKA MILLERTETTER RABBIT DRESSER-C Work Phone: [facility] [employer] [facility].; [employer] [facility] [facility] First. Comment on above: Patient Position: Sitting; Cuff Location : Left Arm; Cuff Size: Standard 11-26-2023 11:12-0500 Heart rate 71 /min NIKA CERVANTESPyng MedicalTETTER RABBIT DRESSER-C Work Phone: [facility] [employer] [facility] First.; [employer] [facility] [place]. Comment on above: Pattern: Regular 11-26-2023 11:12-0500 Inhaled oxygen concentration 21 % NIKA [place] BeyondsoftFSTETTER RABBIT DRESSER-C Work Phone: [facility]; [employer] [facility] [employer] [facility] First. Comment on above: Room air 11-26-2023 11:12-0500 SaO2% (BldA) [Mass fraction] 100 % NIKA ALVESER RABBIT DRESSER-C Work Phone: [facility] [employer]; [employer] [facility] Gle[employer]. 11-26-2023 11:12-0500 Systolic blood pressure 101 mm[Hg] NIKA MILLERTETTER RABBIT DRESSER-C Work Phone: [facility] [employer] [facility]; [employer] [facility] [employer]. Comment on above: Patient Position: Sitting; Cuff Location : Left Arm; Cuff Size: Standard 10-20-2019 10:33-0500 Body height 167.64 cm NIKA BARRERATTER RABBIT DRESSER-C Work Phone: [facility] [employer]; [employer] [facility] [facility]. 10-20-2019 10:33-0500 Body mass index (BMI) [Ratio] 27.92 kg/m2 NIKA BARRERATTER RABBIT DRESSER-C Work Phone: [facility] [employer] [facility] Center[facility]; [employer] [facility] [employer]. 10-20-2019 10:33-0500 Body surface area Derived from formula 1.88 m2 NIKA BARRERATTER RABBIT DRESSER-C Work Phone: [facility] [employer] [facility].; [employer] [facility] [employer]. 10-20-2019 10:33-0500 Body weight 78.47 kg NIKA MILLERTETTER RABBIT DRESSER-C Work Phone: [facility] [employer] [facility] Center[facility]; [employer] [facility] [employer]. 10-20-2019 10:33-0500 Diastolic blood pressure 59 mm[Hg] NIKA College Book RenterTETTER RABBIT DRESSER-C Work Phone: [facility] [employer].; [employer] [facility] [employer]. Comment on above: Patient Position: Sitting; Cuff Location : Left Arm; Cuff Size: Large 10-20-2019 10:33-0500 Heart rate 80 /min NIKA MILLERTETTER RABBIT DRESSER-C Work Phone: [employer].; [employer]. Comment on above: Pattern: Regular 10-20-2019 10:33-0500 Systolic blood pressure 87 mm[Hg] NIKA MILLERTETTER RABBIT DRESSER-C Work Phone: [employer].; [employer]. Comment on above: Patient Position: Sitting; Cuff Location : Left Arm; Cuff Size: Large 05-11-2019 16:24-0400 Body height 167.64 cm NIKA ALVESER RABBIT DRESSER-C Work Phone: [employer].; [employer]. 05-11-2019 16:24-0400 Body mass index (BMI) [Ratio] 28.97 kg/m2 NIKA BARRERATTER RABBIT DRESSER-C Work Phone: [employer].; [employer]. 05-11-2019 16:24-0400 Body surface area Derived from formula 1.91 m2 NIKA BARRERATTER RABBIT DRESSER-C Work Phone: [employer].; [employer]. 05-11-2019 16:24-0400 Body temperature 98.1 [degF] NIKA MILLERTETTER RABBIT DRESSER-C Work Phone: [employer].; [employer]. Comment on above: Method: Oral 05-11-2019 16:24-0400 Body weight 81.42 kg NIKA MILLERTETTER RABBIT DRESSER-C Work Phone: [employer].; [employer]. 05-11-2019 16:24-0400 Diastolic blood pressure 71 mm[Hg] NIKA MILLERTETTER RABBIT DRESSER-C Work Phone: [employer].; [employer]. Comment on above: Patient Position: Sitting; Cuff Location : Left Arm; Cuff Size: Standard 05-11-2019 16:24-0400 Heart rate 90 /min NIKA BURROUGHS RABBIT DRESSER-C Work Phone: [email or web address] Comment on above: Pattern: Regular 05-11-2019 16:24-0400 Systolic blood pressure 105 mm[Hg] NIKA BARRERATTER RABBIT DRESSER-C Work Phone: [employer].; [employer]. Comment on above: Patient Position: Sitting; Cuff Location : Left Arm; Cuff Size: Standard 09-09-2017 15:01-0500 Body height 167.64 cm Chasidy Martins RN [facility] [employer] [facility] [employer] 09-09-2017 15:01-0500 Body mass index (BMI) [Ratio] 25.34 kg/m2 Chasidy Martins RN [facility] [employer] [facility].; [employer] 09-09-2017 15:01-0500 Body surface area Derived from formula 1.8 m2 Chasidy Martins RN [facility] [employer] [facility].; [employer] 09-09-2017 15:01-0500 Body weight 71.22 kg Chasidy Martins RN [facility] [employer] [facility] [employer] 09-09-2017 15:01-0500 Diastolic blood pressure 70 mm[Hg] Chasidy Martins RN [employer] [facility].; [employer]. Comment on above: Patient Position: Sitting; Cuff Location : Left Arm; Cuff Size: Large 09-09-2017 15:01-0500 Heart rate 81 /min Chasidy Martins RN [facility] [employer] [facility] [employer] Comment on above: Pattern: Regular 09-09-2017 15:01-0500 Systolic blood pressure 107 mm[Hg] Chasidy Martins RN [facility] First.; EMILY BURNS [facility] First Comment on above: Patient Position: Sitting; Cuff Location : Left Arm; Cuff Size: Large 07-08-2014 10:170400 Body height 167.64 cm NIKA Point.ioP-C Work Phone: [facility] [employer] [facility] CenterPower Fingerprinting; [facility]. 07-08-2014 10:170400 Body mass index (BMI) [Ratio] 23.24 kg/m2 800APP RABBIT DRESSER-C Work Phone: [facility] [employer] [facility] CenterPower Fingerprinting; [facility]. 07-08-2014 10:170400 Body surface area Derived from formula 1.74 m2 800APP RABBIT DRESSER-C Work Phone: [facility] [employer] [facility] CenterPower Fingerprinting; [employer] LogRhythm [facility] [facility] First. 07-08-2014 10:170400 Body temperature 98.5 [degF] NIKA Point.[employer]P-C Work Phone: [facility] [employer] [facility] CenterPower Fingerprinting; [place] LogRhythm [facility] [employer] [facility] First. Comment on above: Method: Oral 07-08-2014 10:170400 Body weight 65.32 kg NIKA Recorded Future RABBIT DRESSER-C Work Phone: [facility] [employer] [facility] CenterPower Fingerprinting; [facility] [facility]Contents First. 07-08-2014 10:170400 Diastolic blood pressure 62 mm[Hg] 800APP RABBIT DRESSER-C Work Phone: [facility] [employer]; [employer] [facility] [employer] [facility] First. Comment on above: Patient Position: Sitting; Cuff Location : Left Arm; Cuff Size: Standard 07-08-2014 10:17-0400 Heart rate 73 /min NIKA GramovoxER RABBIT DRESSER-C Work Phone: [facility] [employer]; [facility] [employer] [facility] First. Comment on above: Pattern: Regular 07-08-2014 10:17-0400 Systolic blood pressure 91 mm[Hg] NIKA BURROUGHS RABBIT DRESSER-C Work Phone: [facility] First.; [facility] First. Comment on above: Patient Position: Sitting; Cuff Location : Left Arm; Cuff Size: Standard 11-05-2011 15:22-0500 Body height 143.51 cm NIKA ALVESER RABBIT DRESSER-C Work Phone: [facility] [employer] [facility] First.; [facility] First. 11-05-2011 15:22-0500 Body mass index (BMI) [Ratio] 32.6 kg/m2 NIKA ALVESER RABBIT DRESSER-C Work Phone: [facility] [employer] [facility] First.; [facility]. 11-05-2011 15:22-0500 Body surface area Derived from formula 1.57 m2 NIKA ALVESER RABBIT DRESSER-C Work Phone: [facility] [employer] [facility] First.; [employer] Log[employer]hythm [facility] First. 11-05-2011 15:22-0500 Body temperature 97.9 [degF] NIKA ALVESER RABBIT DRESSER-C Work Phone: [facility] [employer] [facility] First.; [facility] [employer] [facility] [employer] [facility] First. Comment on above: Method: Oral 11-05-2011 15:22-0500 Body weight 67.13 kg NIKA ALVESER RABBIT DRESSER-C Work Phone: [facility] [employer] [facility] First.; [employer] [facility] First. 11-05-2011 15:22-0500 Diastolic blood pressure 69 mm[Hg] NIKA ALVESER RABBIT DRESSER-C Work Phone: [facility] First.; [employer] [facility] [facility] First. Comment on above: Patient Position: Sitting; Cuff Location : Left Arm; Cuff Size: Large 11-05-2011 15:22-0500 Heart rate 78 /min NIKA MILLERTETTER RABBIT DRESSER-C Work Phone: [employer].; [employer]. Comment on above: Pattern: Regular 11-05-2011 15:22-0500 Systolic blood pressure 103 mm[Hg] NIKA MILLERTETTER RABBIT DRESSER-C Work Phone: [employer].; [employer]. Comment on above: Patient Position: Sitting; Cuff Location : Left Arm; Cuff Size: Large 10-11-2010 13:34-0500 Body weight 83.46 kg NIKA MILLERTETTER RABBIT DRESSER-C Work Phone: [employer].; [employer]. 10-11-2010 13:34-0500 Diastolic blood pressure 75 mm[Hg] NIKA CERVANTESFSTETTER RABBIT DRESSER-C Work Phone: [employer].; [employer]. Comment on above: Patient Position: Sitting; Cuff Location : Left Arm; Cuff Size: Standard 10-11-2010 13:34-0500 Heart rate 103 /min NIKA MILLERTETTER RABBIT DRESSER-C Work Phone: [employer].; [employer]. Comment on above: Pattern: Regular 10-11-2010 13:34-0500 Systolic blood pressure 118 mm[Hg] NIKA CERVANTESFSTETTER RABBIT DRESSER-C Work Phone: [employer].; [employer]. Comment on above: Patient Position: Sitting; Cuff Location : Left Arm; Cuff Size: Standard Encounters Encounter Date Encounter Type Care Provider Facility Start: 04-09-2025 ambulatory Out of Town Doctor Jeni garsia:[facility] Start: 03-31-2025 End: 03-31-[address] Sreekanth Good MD -[facility] Start: 03-31-2025 End: 03-31-2025 ambulatory Out of Town Doctor -[facility] Start: 02-26-2025 End: 02-26-[address] Sreekanth Good MD -[facility] Start: 02-26-2025 End: 02-26-2025 ambulatory Out of Town Doctor [facility] Work Phone: Start: 01-11-2025 End: 01-11-2025 Results Review NIKA BURROUGHS RABBIT DRESSER-C [employer] Start: 01-06-2025 End: 01-06-2025 ambulatory R [facility] Start: 01-06-2025 End: 01-06-2025 Results Review NIKA HELENGUNNERRADHAER RABBIT DRESSER-C [employer] Start: 12-31-2024 Review NIKA CERVANTESJIMTE TTER RABBIT DRESSER-C [employer] Start: 12-31-2024 End: 12-31-2024 Office outpatient visit 15 minutes NIKA BARRERATTER RABBIT DRESSER-C [employer] Start: 11-28-2023 End: 11-28-2023 Results Review NIKA ALVESER RABBIT DRESSER-C Work Phone: [facility] [employer] Start: 11-26-2023 End: 11-26-2023 Office outpatient visit 15 minutes NIKA MILLERTETTER RABBIT DRESSER-C Work Phone: [employer] Start: 04-22-2023 End: 04-22-2023 Historical Summary NIKA BARRERATTER RABBIT DRESSER-C Work Phone: [email or web address] Start: 11-30-2019 End: 11-30-2019 Historical Summary NIKA ANGELATETTER RABBIT DRESSER-C Work Phone: [employer] Start: 10-29-2019 End: 10-29-2019 Transition of Care NIKA MILLERTETTER RABBIT DRESSER-C Work Phone: [employer] Start: 10-28-2019 End: 10-28-2019 Historical Summary NIKA BURROUGHS RABBIT DRESSER-C Work Phone: [email or web address] [place] [employer] Start: 10-20-2019 End: 10-20-2019 Office outpatient visit 15 minutes NIKA BURROUGHS RABBIT DRESSER-C Work Phone: [employer] Start: 05-11-2019 End: 05-11-2019 Office outpatient visit 15 minutes NIKA BURROUGHS RABBIT DRESSER-C Work Phone: [employer] Start: 09-09-2017 End: 09-09-2017 Patient encounter status TIGRE OCHOA MD Work Phone: [email or web address]; [employer] Start: 09-09-2017 End: 09-09-2017 Periodic preventive med est patient 18-39 yrs NIKA ALVESER RABBIT DRESSER-C Work Phone: [employer] Start: 09-24-2014 End: 09-24-2014 Medication Refill/Order NIKA BURROUGHS RABBIT DRESSER-C Work Phone: [employer] Start: 07-08-2014 End: 07-08-2014 Office outpatient visit 15 minutes NIKA BURROUGHS RABBIT DRESSER-C Work Phone: [employer] Start: 10-16-2013 End: 10-16-2013 Injection/immunization only NIKA ALVESER RABBIT DRESSER-C Work Phone: [employer] Start: 11-05-2011 End: 11-05-2011 Patient encounter procedure NIKA BURROUGHS RABBIT DRESSER-C Work Phone: [employer] Start: 10-23-2010 End: 10-23-2010 Patient encounter procedure NIKA BURROUGHS RABBIT DRESSER-C [facility]: [facility] Start: 10-11-2010 End: 10-11-2010 Patient encounter procedure NIKA BURROUGHS RABBIT DRESSER-C Work Phone: [facility] Start: 10-10-2010 End: 10-10-2010 Historical Summary NIKA BURROUGHS RABBIT DRESSER-C Work Phone: [facility] Procedures Date Procedure Procedure Detail Performing Clinician Start: 02-26-2025 X-ray of lumbosacral spine Out Town Doctor Start: 01-11-2025 End: 01-11-2025 Radex spine lumbosacral minimum 4 views Mar CAT MD Work Phone: Start: 12-31-2024 End: 12-31-2024 Dischrg meds reconciled w/current med list Mar CAT MD Work Phone: Start: 04-16-2024 End: 04-16-2024 Screening mammography NIKA BURROUGHS RABBIT DRESSER-C Work Phone: Comment on above: Normal. Start: 11-28-2023 End: 11-28-2023 Electrocardiographic procedure ZACH CARCAMO RABBIT DRESSER-BC Work Phone: Comment on above: NSR Start: 04-15-2023 End: 04-15-2023 Screening mammography NIKA BURROUGHS RABBIT DRESSER-C Work Phone: Comment on above: Normal. Start: 10-20-2019 End: 10-20-2019 Dischrg meds reconciled w/current med list Zaki ADLER MD Work Phone: Start: 10-20-2019 End: 10-20-2019 Urinary Incontinence NIKA BURROUGHS RABBIT DRESSER-C Work Phone: Comment on above: Negative. Start: 05-19-2019 Antibody screen NIKA HOFSTETTER RABBIT DRESSER-C Work Phone: Start: 05-11-2019 End: 05-11-2019 Dischrg meds reconciled w/current med list Mar CAT MD Work Phone: Start: 09-23-2014 End: 09-23-2014 Adacel NIKA BARRERATTER RABBIT DRESSER-C Work Phone: Start: 10-23-2010 End: 10-23-2010 Removal sutures under anesthesia same surgeon STACY BREAUX MD Work Phone: Start: 10-11-2010 End: 10-11-2010 Exc b9 lesion mrgn xcp sk tg t/a/l 1.1-2.0 cm J KYRA ADLER MD Work Phone: Cholecystectomy NIKA MILLER TETTER RABBIT DRESSER-C Work Phone: Comment on above: & umbilical hernnior carola Cholecystectomy NIKA HOFS TETTER RABBIT DRESSER-C Comment on above: & umbilical hernnior carola Microscopic examinat ion of cervical Papanicolaou smear NIKA BARRERATTER RABBIT DRESSER-C Work Phone: Comment on above: 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 Microscopic examinat ion of cervical Papanicolaou smear NIKA BARRERATTER RABBIT DRESSER-C Work Phone: Microscopic examinat ion of cervical Papanicolaou smear NIKA BARRERATTER RABBIT DRESSER-C Plan of Treatment Date Care Activity Detail Author Start: 03-31-2025 XR Thoracic spine Views [facility] Start: 03-31-2025 Xray thoracic spine Thoracic Spine 2 Views [facility] Start: 02-26-2025 X-ray of lumbosacral spine L/S Spine Bending Flex/Ext [facility] Start: 02-26-2025 XR Spine Lumbar and Sacrum Views [facility] Start: 02-11-2025 Follow-up encounter Medical; RE CHECK OR FOLLOW-UP MEDICAL ILLNESS - [facility] Start: 11-Feb-2025 09:15-04:00 MD Mar CAT Appointment Request [facility] Start: 12-31-2024 Radex spine lumbosacral minimum 4 views X-RAY L/S SPINE - COMPLETE - 3 VIEWS ([id number]) Start: 31-Dec-2024 Intent [facility]. Start: 12-31-2024 Radex spine thoracic 2 views X-RAY THORACIC SPINE, TWO VIEWS ([id number]) Start: 31-Dec-2024 Intent [facility] [facility].; [facility]. Start: 12-31-2024 Sedimentation rate rbc automated RBC SEDIMENTATION RATE, AUTOMATED ([id number]) Start: 31-Dec-2024 09:43-04:00 Request [facility] [facility].; [facility] [facility] Start: 12-31-2024 Comprehensive metabolic panel CMP - COMPREHENSIVE METABOLIC PANEL (27459) Start: 31-Dec-2024 09:43-04:00 [facility] Start: 12-31-2024 Blood count complete auto&auto difrntl wbc CBC, PLATELETS & AUT DIFF (32600) Start: 31-Dec-2024 09:43-04:00 [facility] Start: 11-26-2023 Ecg routine ecg w/least 12 lds w/i&r ELECTROCARDIOGRAM, COMPLETE (45024) Start: 26-Nov-2023 Intent [facility] Start: 11-30-2019 Ct soft tissue neck w/contrast material CT NECK WITH CONTRAST (29242) - IV Contrast per Protocol Start: 30-Nov-2019 [facility] Start: 10-28-2019 Us soft tissue head & neck real time imge docm US THYROID (31932) Start: 28-Oct-2019 [facility] [place]. Start: 11-05-2011 Patient Education [facility] Immunizations Immunization Date Immunization Notes Care Provider Lonnie [email or web address] 09-09-2017 influenza, injectabl e, quadrivalent, contains preservative NIKA ANGELATETTER RABBIT DRESSER[employer]C Work Phone: [facility]; [facility] Comment on above: Site: Left DeltoidVI S Given: * Influenza - Inactivated (04/29/15) 09-09-2017 influenza virus vaccine, unspecified formulation NIKA ANGELATETTER RABBIT DRESSER-C Work Phone: [facility]; [facility] 09-09-2017 unknown vaccine or immune globulin NIKA MILLERTETTER RABBIT DRESSER-C Work Phone: [facility]; [facility] 10-16-2013 tetanus toxoid, redu leander diphtheria toxoid, and acellular pertussis vaccine, adsorbed NIKA [place] [employer] RABBIT DRESSER[employer]C Work Phone: [facility]; [facility] Comment on above: Site: Deltoid (Left) formerly [facility]#[id number] 10-16-2013 *IMMUNIZATION ADMIN ([id number]) NIKA MILLERTETTER RABBIT DRESSER-C Work Phone: [facility]; [facility] Payers Date Payer Category Payer Self-pay 2025 Unknown [id number] 1980 Unknown [id number] Unknown [employer] Unknown [id number] 2.16.8 [id number] Unknown [id number] [id number] [id number] Unknown [id number] [id number] [id number] Unknown [id number] [id number] [id number] Unknown [id number] [id number] [id number] Social History Date Type Detail Facility Alcohol Use: Alcohol Use: ; N o Alcohol Use. [facility] Tobacco use: Tobacco use: ; N ever smoker. [facility] Start: 1980 Female [facility] Start: 02-26-2025 Never smoked tobacco [facility] Current Work/Study Status [facility]; [facility] Evaluation note 02-26-2025 Note Date & Type Note Facility 02-26-2025 Evaluation note Diagnosis Onset Date Resolution Lumbar radiculopathy acute February 26, 2025 1:24pm [facility] Work Phone: Evaluation note Note Date & Type Note Facility Evaluation note No assessment information availa ble [facility] Work Phone: Reason for referral (narrative) Note Date & Type Note Facility Reason for referral (narrative) No reason for referral information available [facility] Work Phone: Summary Purpose Family History No Family History Records Found Father Status:Active Comments:A&W Mother Status:Active Comments:A&W Father Status:Active Comments:A&W Mother Status:Active Comments:A&W Father Status:Active Comments:A&W Mother Status:Active Comments:A&W Father Status:Active Comments:A&W Mother Status:Active Comments:A&W Father Status:Active Comments:A&W Mother Status:Active Comments:A&W Father Status:Active Comments:A&W Mother Status:Active Comments:A&W Father Status:Active Comments:A&W Mother Status:Active Comments:A&W Son (s) Status:Active Comments:4. Father Status:Active Comments:A&W Mother Status:Active Comments:A&W Son (s) Status:Active Comments:4. Father Status:Active Comments:A&W Mother Status:Active Comments:A&W Son (s) Status:Active Comments:4. Father Status:Active Comments:A&W Mother Status:Active Comments:A&W Son (s) Status:Active Comments:4. Father Status:Active Comments:A&W Mother Status:Active Comments:A&W Son (s) Status:Active Comments:4. Father Status:Active Comments:A&W Mother Status:Active Comments:A&W Son (s) Status:Active Comments:4. Father Status:Active Comments:A&W Mother Status:Active Comments:A&W Son (s) Status:Active Comments:4. Advance Directives No Advanced Directives Records FoundNo Advanced Directives Records FoundNo Advanced Directives Records FoundNo Advanced Directives Records Found Chief Complaint and Reason for Visit Chief Complaint Admit Date LUMBAR SPINE February 26, 2025 1:24p m Room 2 February 26, 2025 1:48p m Chief Complaint Admit Date LUMBAR SPINE February 26, 2025 1:24p m Room 2 February 26, 2025 1:48p m THORACIC SPINE March 31, 2025 1:28p m Room 5 March 31, 2025 1:45p m Reason for Visit Admit Date Lumbar radiculopathy February 26, 2025 1:24 pm Additional Source Comments INFORMATION SOURCE (unrecogn ized section and content) DATE CREATED AUTHOR 11/04/2019 [facility] ([place]) DATE CREATED AUTHOR AUTHOR'S ORGANIZ ATION 07/11/2020 [facility] DATE CREATED AUTHOR AUTHOR'S ORGANIZ ATION 01/09/2025 [facility] DATE CREATED AUTHOR AUTHOR'S ORGANIZ ATION 04/07/2025 [facility] y Hospital Care Teams (unrecognized sec tion and content) Team Status: Active Member Role Status Dates Out of [facility] Doctor Family Provider Active Out of Town Doctor Primary Care Provider Active Team Status: Active Member Role Status Dates Out of Town Doctor Primary Care Provider Active Start: February 26, 2025 Out of [facility] Doctor Referring Provider Active Sta rt: February 26, 2025 RAMIREZ Kwan Attending Provider Active Star t: February 26, 2025 Team Status: Inactive Member Role Status Dates Out of Town Doctor Primary Care Provider Active Start: February 26, 2025 End: February 26, 2025 Dr. Sreekanth Good MD Attending Provider Active S tart: February 26, 2025 End: February 26, 2025 Team Status: Inactive Member Role Status Dates Out of [facility] Doctor Primary Care Provider Active Start: February 26, 2025 End: February 26, 2025 Out of [facility] Doctor Referring Provider Active Sta rt: February 26, 2025 End: February 26, 2025 RAMIREZ Kwan Attending Provider Active Star t: February 26, 2025 End: February 26, 2025 Team Status: Active Member Role/Relationship Status Dates Out of [facility] Doctor Primary Care Provider Active Team Status: Inactive Member Role/Relationship Status Dates Out of [facility] Doctor Primary Care Provider Active Start: February 26, 2025 End: February 26, 2025 Out of [facility] Doctor Referring Provider Active Sta rt: February 26, 2025 End: February 26, 2025 RAMIREZ Kwan Attending Provider Active Star t: February 26, 2025 End: February 26, 2025 Team Status: Inactive Member Role/Relationship Status Dates Out of [facility] Doctor Primary Care Provider Active Start: February 26, 2025 End: February 26, 2025 Dr. Sreekanth Good MD Attending Provider Active S tart: February 26, 2025 End: February 26, 2025 Team Status: Active Member Role/Relationship Status Dates Out of [facility] Doctor Primary Care Provider Active Start: March 31, 2025 Out of [facility] Doctor Referring Provider Active Sta rt: March 31, 2025 RAMIREZ Kwan Attending Provider Active Star t: March 31, 2025 Team Status: Inactive Member Role/Relationship Status Dates Out of [facility] Doctor Primary Care Provider Active Start: March 31, 2025 End: March 31, 2025 Dr. Sreekanth Good MD Attending Provider Active S tart: March 31, 2025 End: March 31, 2025 Team Status: Inactive Member Role/Relationship Status Dates Out of [facility] Doctor Primary Care Provider Active Start: March 31, 2025 End: March 31, 2025 Out of [facility] Doctor Referring Provider Active Sta rt: March 31, 2025 End: March 31, 2025 RAMIREZ Kwan Attending Provider Active Star t: March 31, 2025 End: March 31, 2025 Goals (unrecognized section and content) Goals may be documented in a n alternate sectionGoals may be documented in an alternate sectionGoals may be documented in an alternate sectionGoals may be documented in an alternate section FOR RECORDS PERTAINING TO PATIENTS WHO ARE OR HAVE BEEN ENROLLED IN A CHEMICAL DEPENDENCY/SUBSTANCEABUSE PROGRAM, SOME INFORMATION MAY BE OMITTED. This clinical summary was aggregated from multiple sources. Caution should be exercised in using it in the provision of clinical care. This summary normalizes information from multiple sources, and as a consequence, information in this document may materially change the coding, format and clinical context of patient data. In addition, data may be omitted in some cases. CLINICAL DECISIONS SHOULD BE BASED ON THE PRIMARY CLINICAL RECORDS. [facility] [employer] [facility]. provides no warranty or guarantee of the accuracy or completeness of information in this document.
== END | disposition home or self-care (01) ==
PROVIDERS: Referring Provider Student in an Organized Health Care Education/Training Program; Visit Provider Student in an Organized Health Care Education/Training Program
DX: M54.16 Radiculopathy, lumbar region (principal)
CPT/HCPCS: 72148